=== PATIENT | male | born 1955 | race Caucasian/White ===

== ENCOUNTER 2020-04-18 18:51 | Emergency (ER) | payer BC, OTHER ==
[~2020-04-18] VITALS: Ht 177.8 cm; Wt 82.0 kg
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
[2020-04-18] MEDS ORDERED: DIVA250T PO (19:29)
[2020-04-18 20:13] VITALS: BP 105/68
== END 2020-04-18 20:18 | disposition home or self-care (01) ==
LOC: ED 20:00
DX: Z04.1 Encounter for examination and observation following transport accident (principal)
CPT/HCPCS: 99283